=== PATIENT | male | born 1965 | race Asian ===

== ENCOUNTER 2022-04-22 09:13 | Emergency (ER) | payer OTHER, SELFPAY ==
[~2022-04-22] VITALS: Ht 160 cm; Wt 56.8 kg
[~2022-04-22 09:13] MED LIST: ASPI81TA87 PO; LISI1TAB9 PO
[2022-04-22 09:29] VITALS: BP 175/81
[2022-04-22] MEDS ORDERED: IBUP-2784 PO (12:24)
== END 2022-04-22 13:05 | disposition home or self-care (01) ==
LOC: EMS 09:13
DX: S93.401A Sprain of unspecified ligament of right ankle, initial encounter (principal); Z79.82 Long term (current) use of aspirin; Z79.899 Other long term (current) drug therapy; X50.1XXA Overexertion from prolonged static or awkward postures, initial encounter; Y93.89 Activity, other specified; Y92.89 Other specified places as the place of occurrence of the external cause; Y99.8 Other external cause status
CPT/HCPCS: 99283